=== PATIENT | female | born 1985 | race Caucasian/White ===

== ENCOUNTER 2017-03-13 18:05 | Emergency (ER) | payer OTHER ==
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
[~2017-03-13 18:05] MED LIST: ACETAMINOPHEN PO; AMBIEN10 MG PO; AMETHIA 0.15-01 EAC1 PO; AMETHIA LO TAB1 EACH PO; BACTRIM DS TABL1 TA1 PO; BENTYL10 MG PO; BENTYL20 MG PO; BUSPAR PO; CALCIUM500 MG PO; CELEXA10 MG; CERTAGEN PO; COGENTIN1 MG PO; COZAAR PO; CYMBALTA PO; CYMBALTA30 MG PO; DARVOCET-N 1001 TAB PO; DEPO-MEDROL20 MG/ML; DEPO-PROVE150 MG/1 M IM; DEPO-PROVER400 MG/ML IM; DEPOPROVERA; DETROL1 MG; DEXTROAMPHETAMI10 MG PO; DIAZEPAM PO; FLEXERIL10 M1 PO; FLEXERIL10 MG PO; HALDOL PO; KEPPRA500 M2 PO; LAMICTAL PO; LEVAQUIN750 MG PO; LINZESS290 MCG PO; LITHIUM CARBON600 MG PO; LITHIUM PO; LITHOBID SR300 MG PO; LORTAB 7.5-5001 TAB PO; MEDROL DOSEPAK4 MG PO; MEDROL PO; MULTI-DAY VITAM1 TAB PO; NAPROXEN PO; NEURONTIN PO; NEURONTIN300 MG PO; PHENERGAN PO; PHENERGAN SUPP25 M1 PR; PHENERGAN25 MG PO; PROTONIX PO; REGLAN10 MG PO; SEROQUEL PO; TOPAMAX PO; TOPAMAX25 MG PO; TRILEPTAL; TYLENOL #3 PO; VITAMIN D400 UNI3 PO; VOLTAREN75 MG PO; WELLBUTRIN XL PO; XANAX0.5 MG PO; ZOFRAN ODT4 MG/UDTAB PO; ZOFRAN PO; ZOFRANODT PO; ZOLOFT100 MG PO; ZYRTEC10 M3
[2017-03-13] MEDS ORDERED: BUSPIRONE PO ×2 (18:15→18:16)
[2017-03-13] MEDS ORDERED: NEURONTIN PO (18:15)
[2017-03-13] MEDS ORDERED: GABAPENTIN PO (18:16)
[2017-03-13] MEDS ORDERED: TOPIRAMATE PO ×2 (18:16→18:17)
[2017-03-13] MEDS ORDERED: SERTRALINE PO (18:17)
[2017-03-13] MEDS ORDERED: TOLTERODINE PO (18:17)
[2017-03-13] MEDS ORDERED: CETIRIZINE PO (18:18)
[2017-03-13] MEDS ORDERED: BUPROPION PO (18:18)
[2017-03-13] MEDS ORDERED: PROMETHAZINE PO (18:19)
[2017-03-13] MEDS ORDERED: DIAZEPAM PO (18:19)
[2017-03-13 19:28] LABS: BASOPHIL# 0.1 X10e3 (0-0.3); BASOPHIL% 0.7 % (0-2.5); EOSINOPHIL# 0.6 X10e3 (0-0.7); EOSINOPHIL% 7.5 % (0.0-7.0); HEMATOCRIT 41.2 % (35.0-45.0); HEMOGLOBIN 13.7 gm/dL (12.0-16.0); LYMPHOCYTE# 3.3 X10e3 (1.0-3.5); LYMPHOCYTE% 42.9 % (17.0-45.0); MEAN CELL VOLUME 92.6 FL (83-96); MEAN CORPUSCULAR HEMOGLOBIN 30.8 PG (28-34); MEAN CORPUSCULAR HGB CONC 33.3 g/dL (30-36); MEAN PLATELET VOLUME 8.5 FL (6.5-11.5); MONOCYTE# 0.5 X10e3 (0-1.0); MONOCYTE% 6.2 % (3.0-12.0); NEUTROPHIL# 3.3 X10e3 (1.5-7.1); NEUTROPHIL% 42.7 % (40-75); PLATELET COUNT 252 X10e3 (140-420); RED BLOOD COUNT 4.45 X10e (3.90-5.30); WHITE BLOOD COUNT 7.7 X10e3 (4.0-10.5)
[2017-03-13 19:29] LABS: DIFF IND NO
[2017-03-13 19:48] LABS: ALBUMIN SERUM 4.4 g/dL (3.5-5.0); BILIRUBIN,TOTAL 0.4 mg/dL (0.2-2.0); CALCIUM SERUM 9.2 mg/dL (8.4-10.2); GLOM FILT RATE Estimated 76.1 mL/min (>60); POTASSIUM 3.8 mmol/L (3.5-5.1); PROTEIN TOTAL SERUM 7.6 g/dL (6.0-8.3)
== END 2017-03-13 21:26 | disposition home or self-care (01) ==
LOC: SED 18:05
PROVIDERS: Emergency Medicine
DX: S16.1XXA Strain of muscle, fascia and tendon at neck level, initial encounter (principal); Z88.0 Allergy status to penicillin; Z88.8 Allergy status to other drugs, medicaments and biological substances; Z79.899 Other long term (current) drug therapy
CPT/HCPCS: 36415; 72040; 73030; 74177; 80053; 82150; 83690; 84703; 85025; 96361; 96374; 99285; J2270; Q9967